=== PATIENT | female | born 1970 | race Caucasian/White ===

== ENCOUNTER → 2019-02-08 | Outpatient (CLI) | payer SELFPAY ==
--- NOTE | 2019-02-08 15:17 | RADIOLOGY REPORT (SQ) ---
EXAM DESCRIPTION: MRI BREAST BILATERAL W/WO COMPLETED DATE/TIME: 02/08/2019 2:18 pm REASON FOR STUDY: LEFT BREAST MASS (N63.20), NIPPLE DISCHARGE (N64.52) N63.20 UNSPECIFIED LUMP IN T HE LEFT BREAST, UNSPECIFIED QUAD N64.52 NIPPLE DISCHARGE COMPARISON: Ultrasound-guided breast biopsy 01/30/2019 Post left breast biopsy mammogram 01/30/2019 PATHOLOGIC CORRELATION: None. CONTRAST TYPE AND DOSE: 20 mL Dotarem. RENAL FUNCTION: None required. The patient is less than 50 years old. TECHNIQUE: MR imaging performed with a dedicated breast coil. Pre contrast T1 and T2 weighted images . Pre contrast and post contrast enhanced T1 weighted images with fat saturation. Subtraction images, 3D thick and thin MIPS, and kinetic analysis were not performed on an independent workstation. ([employer] workstation). Subtraction images on the scanner were generated Magnet strength: 1.5 T LIMITATIONS: None. FINDINGS: BREAST DENSITY: b. There are scattered areas of fibroglandular density. BACKGROUND PARENCHYMAL ENHANCEMENT:Minimal. RIGHT BREAST: No enhancing or suspicious masses. No clumped, regional/segmental ductal enhancement. There is a fluid-filled right retroareolar duct on axial T2 image 39. Patient has a history of nip ple discharge. Second-look ultrasound and ultrasound-guided core biopsy recommended if any findings along the dilated duct right retroareolar region. No clumped, regional/segmental ductal enhancement. Multiple small right breast parenchymal cysts are present, largest is 13 mm in the deep central right breast. Next largest is 6 mm in diameter latera lly. CHEST WALL: Normal tissue planes. No abnormal internal mammary nodes. AXILLA: Normal axillary and retro-pectoral nodes. LEFT BREAST:There is a biopsy clip in the left breast upper outer quadrant, 1 to 2 o'clock position a bout 10 cm from the nipple. There is correlates with a positive sonographic biopsy for atypical rajesh llary lesion performed on 01/30/2019. On axial postcontrast T1 weighted images 25 through 27, along 0 .7 x 1.3 cm ill-defined area of enhancement is present correlating with the atypical papillary lesion . There is a biopsy clip in the left breast retroareolar region. This correlates with a 7 mm ill-defin ed enhancing breast mass previously biopsied on 01/30/2019, demonstrating atypical papillary lesion. No clumped, regional/segmental ductal enhancement. Multiple small left breast cysts are present, the largest is in the deep central left breast 7 mm in size CHEST WALL: Normal tissue planes. No abnormal internal mammary nodes. AXILLA: Normal axillary and retro-pectoral nodes. OTHER:No identified liver, bone, or lung lesions. No other significant incidental findings. IMPRESSION: On the right side, patient has nipple discharge. There is a fluid-filled duct in the ce ntral retroareolar region identified on axial T2 images. Right breast diagnostic mammograms and Seco nd-look ultrasound right retroareolar region with ultrasound-guided biopsy of any suspicious lesions right-side recommended. BI-RADS 0 On the left side, to enhancing atypical papillary lesions are identified which were previously biopsi ed. No other worrisome contrast enhancement or left breast discrete masses. BIRAD: RIGHT BREAST: BI-RADS 0, second-look ultrasound with ultrasound-guided core biopsy of any beata picious right breast mass at sonography. Right breast diagnostic mammograms also recommended LEFT BREAST: 5 Highly suggestive of malignancy. Appropriate action should be taken. RECOMMENDATION: RECOMMENDED FOLLOW-UP: Right breast diagnostic mammograms, Right breast second-look ultrasound with possible biopsy of any right breast findings TECHNICAL DOCUMENTATION: JOB ID: [id number] [employer]- All Rights Reserved Reading location - IP/workstation name: [email or web address]
== END ==
LOC: RAD 12:39
PROVIDERS: ATTEND Surgery
DX: N63.21 Unspecified lump in the left breast, upper outer quadrant (principal); N64.52 Nipple discharge
CPT/HCPCS: 77049; A9576

== ENCOUNTER 2019-02-14 05:57 | Day surgery (SDC) | payer SELFPAY ==
[2019-02-10 10:25] LABS: HEMATOCRIT 41.7 % (36.0-47.0); HEMOGLOBIN 14.1 g/dL (12.0-15.5); MEAN CORPUSCULAR HEMOGLOBIN 28.7 pg (27.0-33.4); MEAN CORPUSCULAR HGB CONC 33.8 g/dL (32.0-36.0); MEAN CORPUSCULAR VOLUME 85 fl (80-97); PLATELET COUNT 314 10^3/uL (150-450); RED CELL DISTRIBUTION WIDTH 14.6 % (11.5-14.0); WHITE BLOOD COUNT 11.1 10^3/uL (4.0-10.5)
--- NOTE | 2019-02-10 10:40 | RADIOLOGY REPORT (SQ) ---
EXAM DESCRIPTION: CHEST PA/LATERAL COMPLETED DATE/TIME: 02/10/2019 10:26 am REASON FOR STUDY: PRE-OP COMPARISON: None. EXAM PARAMETERS: NUMBER OF VIEWS: two views TECHNIQUE: Digital Frontal and Lateral radiographic views of the chest acquired. RADIATION DOSE: NA LIMITATIONS: none FINDINGS: LUNGS AND PLEURA: There is minimal linear atelectasis in the left base. Lung melissa are o therwise clear. No consolidation or effusions. MEDIASTINUM AND HILAR STRUCTURES: No masses or contour abnormalities. HEART AND VASCULAR STRUCTURES: Heart normal size. No evidence for failure. BONES: No acute findings. HARDWARE: None in the chest. OTHER: No other significant finding. IMPRESSION: Minimal left basilar atelectasis. No other significant findings. TECHNICAL DOCUMENTATION: JOB ID: [id number] [employer]- All Rights Reserved Reading location - IP/workstation name: [email or web address]
[2019-02-10 10:50] LABS: ANION GAP 11 (5-19); BLOOD UREA NITROGEN 13 mg/dL (7-20); CALCIUM 9.5 mg/dL (8.4-10.2); CARBON DIOXIDE 25 mmol/L (22-30); CHLORIDE 105 mmol/L (98-107); GLUCOSE 100 mg/dL (75-110); POTASSIUM 4.2 mmol/L (3.6-5.0); SODIUM 140.7 mmol/L (137-145)
--- NOTE | 2019-02-10 18:42 | EKG REPORT ---
SEVERITY:- NORMAL ECG - SINUS RHYTHM : Confirmed by: Tara Naranjo 10-Feb-2019 18:42:20
[~2019-02-14 05:57] MED LIST: METRONIDAZOLE 500 MG/NS RTU 500 MG/100 ML RTUPB IV ONE; METRONIDAZOLE 500 MG/NS RTU 500 MG/100 ML RTUPB IV PRN
[2019-02-14] MEDS ORDERED: LIDOCAINE 2% JELLY 30 ML TUBE ONE ×2 (08:36→09:25)
[2019-02-14] MEDS ORDERED: BUPIVACAINE HCL 0.5 % INJ/PF 30 ML SDV ONE ×2 (08:36→09:24)
[2019-02-14] MEDS ORDERED: PROPOFOL INJ 200 MG/20 ML VIAL IV ONE (09:25)
[2019-02-14] MEDS ORDERED: FENTANYL CITRATE INJ/PF 100 MCG/2 ML AMPUL ONE ×2 (09:25→10:54)
[2019-02-14] MEDS ORDERED: MIDAZOLAM 2 MG/2 ML INJ ONE (09:25)
[2019-02-14] MEDS ORDERED: BUPIVACAINE INJ/PF LIPOSOME/PF 266 MG/20 ML SDV ONE (09:51)
[2019-02-14] MEDS ORDERED: FENTANYL CITRATE INJ/PF 100 MCG/2 ML AMPUL IV PRN ×3 (10:07)
--- NOTE | 2019-02-14 10:52 | Discharge Summary ---
Discharge Summary (SDC) - Discharge Final Diagnosis: Suspicious anal and perianal skin lesions, enlarged hemorrhoids in the right posterior column Date of Surgery: 02/14/19 Discharge Date: 02/14/19 Condition: Stable Treatment or Instructions: Discharge home. Diet as tolerated. Activity: Nonstrenuous. Follow-up with me in 7 to 10 days. [place] 10/325 mg p.o. every 6 hours as needed for pain. Gxkf-vax-ybcpprt Aleve, 2 tabs p.o. twice daily. Lidocaine ointment, 2%, apply to rectum 3 times daily. Neosporin rkso-wyg-vnuvdpb ointment applied to rectum 3 times daily. Stool softeners umno-mkp-dwlkdbq, 2 tabs p.o. twice daily. Metamucil powder, 1 dose twice daily. Warm sits baths and soapy water twice daily and after bowel movements. Discharge Diet: As Tolerated Respiratory Treatments at Home: Deep Breathing/Coughing, Incentive Spirometer Discharge Activity: Balance Activity w/Rest Home Care Assistance: None Needed Report the Following to Your Physician Immediately: Shortness of Breath, Nausea, Vomiting, Increase in Pain, Fever over 101 Degrees, Unusual Bleeding, Redness
--- NOTE | 2019-02-14 10:58 | Operative Report ---
Nonrecallable Operative Report DATE OF SURGERY: 02/14/19 PREOPERATIVE DIAGNOSIS: 1. Suspicious anal and perianal skin lesions. 2. Enlarged right posterior hemorrhoid column. POSTOPERATIVE DIAGNOSIS: Same as above OPERATION: 1. Excision of suspicious anal canal skin lesion in the left lateral position (9:00). 2. Excision of 2 cm perianal skin lesion on the left buttock, anteriorly. 3. excision of right posterior thrombosed internal and external hemorrhoid SURGEON: DAVIDA TRINIDAD ANESTHESIA: LMAC TISSUE REMOVED OR ALTERED: 1. Suspicious left lateral anal canal lesion. 2. Suspicious skin lesion of the left buttock, perianal area. 3. Thrombosed internal and external right posterior hemorrhoid COMPLICATIONS: None apparent ESTIMATED BLOOD LOSS: Minimal PROCEDURE: Drains/implants: None. Procedure in detail: After informed consent was obtained, the patient was brought to the operating room and laid in the prone jackknife position. An anal block was created with Exparel. After this was completed a Hill-Nicole retractor was then inserted into the rectum. The large suspicious skin lesion was seen in the left lateral position. There were large, thrombosed internal and external hemorrhoids in the right posterior position. Attention was turned to the left lateral position. The suspicious skin lesions were elevated and divided at its base. The resultant skin defect was closed using 3-0 chromic suture in simple running fashion. Great care was taken to reapproximate mucosa to mucosa, anoderm to anoderm, and skin the skin. Attention was then turned to the right posterior hemorrhoid column. The hemorrhoid was elevated and excised with Bovie electrocautery. The resultant defect was again closed using 3-0 chromic suture in simple running fashion. Great care was taken to reapproximate mucosa to mucosa, anoderm to anoderm, and skin to skin. Once this was completed, attention was turned to the perianal skin lesion. On the perianal skin, approximately 7:00, a 2 cm skin lesion was identified. This was elevated anteriorly and excised via an elliptical incision with a 15 blade scalpel. Minimal margins were taken. The subcutaneous tissues were closed using 3-0 Vicryl suture. The skin was closed using 3-0 chromic suture in simple interrupted fashion. A dressing was then placed, and the procedure was concluded. All sponge, instrument, and needle counts were correct x2. Condition: Stable.
[2019-02-14] MEDS ORDERED: HYDROCODONE/ACETAMINOPHEN 10-325 MG TABLET ONE (11:38)
[2019-02-14 12:53] VITALS: BP 145/98
== END 2019-02-14 12:35 | disposition home or self-care (01) ==
LOC: OROUT 05:57 → EEVIPCON 08:00 → OROUT 12:35
PROVIDERS: ATTEND Surgery
DX: K64.4 Residual hemorrhoidal skin tags (principal); K64.8 Other hemorrhoids; D20.0 Benign neoplasm of soft tissue of retroperitoneum; K62.9 Disease of anus and rectum, unspecified; I10 Essential (primary) hypertension; F17.210 Nicotine dependence, cigarettes, uncomplicated; Z79.899 Other long term (current) drug therapy
CPT/HCPCS: 93005; 36415; 85027; 81025; 80048; 88304 ×2; 88305 ×2; 71046; 93010; 46260; 46922; J2250; J3010; J3490; J2704; C9290; 902

== ENCOUNTER → 2019-12-19 | Outpatient (CLI) | payer MEDICAID ==
--- NOTE | 2019-12-19 18:03 | WOMENS IMAGING REPORT ---
EXAM DESCRIPTION: 3D SCREENING MAMMO RIGHT COMPLETED DATE/TIME: 12/19/2019 10:29 am REASON FOR STUDY: Z12.31 SCREENING MAMMO Z12.31 ENCNTR SCREEN MAMMOGRAM FOR MALIGNANT NEOPLASM OF B RE COMPARISON: Bilateral breast MRI 02/08/2019 EXAM PARAMETERS: Standard craniocaudal and mediolateral oblique views of the right breast recorded u sing digital acquisition and breast tomosynthesis. Post left mastectomy in 2019 Read with the assistance of CAD. .[facility] - R2 Mobile Tester Version 9.2 LIMITATIONS: None. FINDINGS: BREAST LATERALITY: Right No suspicious masses, suspicious calcifications or architectural distortion. No areas of concern. IMPRESSION: NEGATIVE MAMMOGRAM. BIRADS 1. BREAST DENSITY: b. There are scattered areas of fibroglandular density. BIRAD: ASSESSMENT: 1 Negative RECOMMENDATION: RECOMMENDATION: ROUTINE SCREENING. Please continue right breast screening mammography/tomosynthesis in December 2020 COMMENT: The patient has been notified of the results by letter per MQSA requirements. Additional no tification policies are in place for contacting patient with suspicious or incomplete findings. Quality ID #225: The [employer] recommends an annual screening mammogram for women aged 40 years or over. This facility utilizes a reminder system to ensure that all patients receive reminder letters, and/or direct phone calls for appointments. This includes reminders for routine scr eening mammograms, diagnostic mammograms, or other Breast Imaging Interventions when appropriate. Th is patient will be placed in the appropriate reminder system. TECHNICAL DOCUMENTATION: FINDING NUMBER: (1) ASSESSMENT: (1) JOB ID: [id number] 2010 [employer]- All Rights Reserved Reading location - IP/workstation name: [email or web address]
== END ==
LOC: WI 09:50
PROVIDERS: ATTEND Surgery
DX: Z12.31 Encounter for screening mammogram for malignant neoplasm of breast (principal)

== ENCOUNTER → 2020-06-05 | Outpatient (CLI) | payer MEDICAID ==
--- NOTE | 2020-06-05 14:10 | WOMENS IMAGING REPORT ---
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 EXAM PARAMETERS: Standard craniocaudal and mediolateral oblique images of the breast recorded with d igital acquisition. Additional true lateral and spot compression MLO and CC images acquired. Read with the assistance of CAD. .[facility] - R2 [employer] Operator Version 9.2 LIMITATIONS: None. FINDINGS: BREAST LATERALITY: right MASSES: No suspicious masses. CALCIFICATIONS: No new or suspicious calcifications. ARCHITECTURAL DISTORTION: None. ASYMMETRY: None noted. OTHER: No other significant findings. BREAST ULTRASOUND: TECHNIQUE: Static and dynamic grayscale images acquired of the entire right breast and axilla. Select ed color Doppler images recorded. ELASTOGRAPHY PERFORMED: No. LIMITATIONS: None. FINDINGS: MASS: No mass identified. Normal glandular tissue. ELASTOGRAPHY CHARACTERISTICS: Not applicable. OTHER: No other significant finding. IMPRESSION: No worrisome mammographic or sonographic findings. BREAST DENSITY: b. There are scattered areas of fibroglandular density. BIRAD: ASSESSMENT: 1 Negative. RECOMMENDATION: RECOMMENDED FOLLOW UP: Birads 1 or 2: No breast imaging finding to explain the patie nt's presenting complaint. Further intervention should be based on the degree of clinical suspicion. SPECIFIC INTERVENTION/IMAGING/CONSULTATION RECOMMENDED:No additional intervention/ imaging/consultati on needed at this time. COMMUNICATION:The imaging findings were not discussed with the patient. Her referring provider has be en notified of the findings. COMMENT: The patient has been notified of the results by letter per MQSA requirements. Additional no tification policies are in place for contacting patient with suspicious or incomplete findings. Quality ID #225: The [employer] recommends an annual screening mammogram for women aged 40 years or over. This facility utilizes a reminder system to ensure that all patients receive reminder letters, and/or direct phone calls for appointments. This includes reminders for routine scr eening mammograms, diagnostic mammograms, or other Breast Imaging Interventions when appropriate. Th is patient will be placed in the appropriate reminder system. TECHNICAL DOCUMENTATION: FINDING NUMBER: (1) ASSESSMENT: (1) JOB ID: [id number] 2010 [employer]- All Rights Reserved Reading location - IP/workstation name: [email or web address]
== END ==
LOC: WI 12:05
PROVIDERS: ATTEND Internal Medicine Hematology & Oncology
DX: Z08 Encounter for follow-up examination after completed treatment for malignant neoplasm (principal); Z85.3 Personal history of malignant neoplasm of breast; N63.10 Unspecified lump in the right breast, unspecified quadrant
CPT/HCPCS: 76641; 77065